=== PATIENT | male | born 1970 | race Caucasian/White ===

== ENCOUNTER → 2019-05-31 | Outpatient (CLI) | payer OTHER | LOC: OD 14:51 | PROVIDERS: ATTEND Otolaryngology | DX: J30.9 Allergic rhinitis, unspecified (principal) | CPT/HCPCS: 36415; 82785; 86003 ==

== ENCOUNTER 2019-07-13 09:44 | Day surgery (SDC) | payer OTHER ==
[~2019-07-13 09:44] MED LIST: OXYMETAZOLINE HCL 0.05% NASAL SPRAY 15 ML BOTTLE ONE
[2019-07-13] MEDS ORDERED: SUCCINYLCHOLINE CHLORIDE INJ 200 MG/10 ML VIAL ONE (10:17)
[2019-07-13] MEDS ORDERED: FENTANYL CITRATE INJ/PF 100 MCG/2 ML AMPUL ONE (10:17)
[2019-07-13] MEDS ORDERED: ONDANSETRON HCL INJ/PF 4 MG/2 ML SDV ONE (10:17)
[2019-07-13] MEDS ORDERED: MIDAZOLAM 2 MG/2 ML INJ ONE (10:17)
[2019-07-13] MEDS ORDERED: DEXAMETHASONE SOD PHOS INJ 10 MG/1 ML VIAL ONE (10:17)
[2019-07-13] MEDS ORDERED: LIDOCAINE 2%/EPINEPHRINE INJ 1.7 ML CARTRIDGE ONE (10:23)
[2019-07-13] MEDS ORDERED: BACITRACIN ZINC OINTMENT 15 GM ONE (10:23)
[2019-07-13] MEDS ORDERED: COCAINE HCL 4% TOPICAL SOLN 4 ML ONE (10:23)
--- NOTE | 2019-07-13 11:42 | Operative Report ---
Operative Report-[facility] Operative Report: Date: 13 July 2019 History: Patient with history of right eustachian tube dysfunction. Presents today for a balloon dilation of the right eustachian tube. Informed consent was obtained from the patient Preoperative Diagnosis: 1. Eustachian tube dysfunction Postoperative diagnosis: Same as above Procedure: 1. Eustachian tube balloon dilation/reconstruction nasopharynx [CPT = 12939], right 2. Rigid nasal endoscopy, right Surgeon: Harjinder Rivera MD, FACS, [facility] Anesthesia: GETA Description of procedure: After receiving informed consent from the patient, the patient was transported to the operating room and placed supine on the operating room table. After successful induction and intubation by anesthesia cottonoids saturated with 4% cocaine were placed into right nasal cavity for approximately 5 minutes. They were then removed. Nasal septum and inferior turbinate were injected with 2% Xylocaine with 100,000 epinephrine. The cottonoids were placed back into the nasal cavity. The cottonoids were removed from the nasal cavity. A rigid nasal 30 degree endoscope along with the AREA eustachian tube balloon dilation system was inserted in the right nasal cavity. The torus tubarius was visualized. Under endoscopic guidance the balloon was inserted into the right eustachian tube lumen. The balloon was then insufflated to 12 atmospheric pressure for 2 minutes. The balloon was then let down and removed from the eustachian tube lumen. The endoscope and balloon system was then removed from the nasal cavity. The patient tolerated the procedure well without any complications. Patient was then given back to anesthesia who successfully extubated the patient without any complications. Estimated blood loss: Minimal Fluids: 100 mL The patient was transferred to the postanesthesia care unit in stable condition with spontaneous respirations.
[2019-07-13] MEDS ORDERED: OXYCODONE-ACETAMINOPHEN 5-325 MG TABLET ONE (12:06)
== END 2019-07-13 12:39 | disposition home or self-care (01) ==
LOC: SC 09:44
PROVIDERS: ATTEND Otolaryngology
DX: H69.81 Other specified disorders of Eustachian tube, right ear (principal); J30.9 Allergic rhinitis, unspecified; J34.2 Deviated nasal septum; J30.0 Vasomotor rhinitis; J34.3 Hypertrophy of nasal turbinates; Z79.899 Other long term (current) drug therapy; I10 Essential (primary) hypertension; K21.9 Gastro-esophageal reflux disease without esophagitis; Z88.2 Allergy status to sulfonamides
CPT/HCPCS: 00170; 42950; 31231; J2250; J3490 ×3; J3010; J0330; J2405; J1100; 170